=== PATIENT | male | born 1985 | race Two or more races ===

== ENCOUNTER 2024-04-24 04:16 | Emergency (ER) | payer BC, OTHER ==
[~2024-04-24] VITALS: Ht 188 cm; Wt 172.2 kg
[2024-04-24] MEDS ORDERED: INDO50CA82 PO (05:09)
[2024-04-24] MEDS ORDERED: METH4PAK PO (05:09)
--- NOTE | 2024-04-24 05:09 | ED.PDOC ---
Musculoskeletal HPI Comments 38 YEAR OLD MALE PRESENTS TO ER WITH COMPLAINTS OF RIGHT HAND PAIN X 4 DAYS. PATIENT WITH PMH SIGNIFICANT FOR GOUT STATES THAT HE SPENDS SEVERAL HOURS A DAY USING HIS HANDS TO BUILD CAR PARTS AND X 4 DAYS HAS BEEN EXPERIENCING 8/10 PAIN LOCALIZED TO LAST 3 FINGERS OF RIGHT HAND WITH RADIATION TOWARDS RIGHT WRIST. NOTES HE HAS BEEN TAKING IBUPROFEN FOR HIS PAIN WITH SLIGHT RELIEF. DENIES FEVER, BODY ACHES, CHILLS, NUMBNESS/TINGLING, TRAUMA/INJURY, SKIN CHANGES OR ANY FURTHER SYMPTOMS/COMPLAINTS Chief Complaint: Upper Extremity Time Seen by MD: 04:44 Primary Care Provider: UNKNOWN Reviewed Notes: Nurses Notes, Medications, Allergies Allergies: Coded Allergies: NO KNOWN ALLERGIES (Unverified , 04/24/24) Home Meds Active Scripts Methylprednisolone (Medrol Dosepak) 4 Mg Jesse, 4 MG PO UD, #21 TAB 0 Refills UAD Prov:LALO RENAE 04/24/24 Indomethacin (Indomethacin) 50 Mg Cap, 1 CAP PO TID PRN, #30 CAP 0 Refills Prov:LALO RENAE 04/24/24 Information Source: Patient Mode of Arrival: Ambulatory Past Medical History PAST MEDICAL HISTORY: Gout Surgical History: Denies all surgeries Family History Family History: Unknown Social History Smoker: Cigarettes, Less Than 1 Pack/Day Alcohol: Denies ETOH Use Drugs: Denies Drug Use Lives In: Home Constitutional: denies: chills, diaphoresis, fatigue, fever, malaise, sweats, weakness, others EENTM: denies: blurred vision, double vision, ear bleeding, ear discharge, ear drainage, ear pain, ear ringing, eye pain, eye redness, hearing loss, mouth pain, mouth swelling, nasal discharge, nose bleeding, nose congestion, nose pain, photophobia, tearing, throat pain, throat swelling, voice changes, others Respiratory: denies: cough, hemoptysis, orthopnea, SOB at rest, shortness of breath, SOB with excertion, stridor, wheezing, others Cardiovascular: denies: chest pain, dizzy spells, diaphoresis, Dyspnea on exertion, edema, irregular heart beat, left arm pain, lightheadedness, palpitations, PND, syncope, others Gastrointestinal: denies: abdomen distended, abdominal pain, blood streaked bowels, constipated, diarrhea, dysphagia, difficulty swallowing, hematemesis, melena, nausea, poor appetite, poor fluid intake, rectal bleeding, rectal pain, vomiting, others Genitourinary: denies: burning, dysuria, flank pain, frequency, hematuria, incontinence, penile discharge, penile sore, pain, testicle pain, testicle swelling, urgency, others Neurological: denies: dizziness, fainting, headache, left sided numbness, left sided weakness, numbness, paresthesia, pre-existing deficit, right sided numbness, right sided weakness, seizure, speech problems, tingling, tremors, weakness, others Musculoskeletal: reports: others ( STATED IN HPI) Integumetry: denies: bruises, change in color, change in hair/nails, dryness, laceration, lesions, lumps, rash, wounds, others Allergic/Immunocompromised: denies: Difficulty Healing, Frequent Infections, Hives, Itching, others Hematologic/Lymphatic: denies: anemia, blood clots, easy bleeding, easy bruising, swollen glands, others Endocrine: denies: excessive hunger, excessive sweating, excessive thirst, excessive urination, flushing, intolerance to cold, intolerance to heat, unexplained weight gain, unexplained weight loss, others Psychiatric: denies: anxiety, bipolar disorder, depression, hopeless, panic disorder, schizophrenia, sleepless, suicidal, others Physical Exam General Appearance: No Apparent Distress HEENT: PERRL/EOMI Neck: Full Range of Motion, Non-Tender, Normal Respiratory: Chest Non-Tender, Lungs Clear, No Accessory Muscle Use, No Respiratory Distress, Normal Breath Sounds Cardiovascular: No Murmur, No Gallop, Regular Rate/Rhythm Breast Exam: Deferred Gastrointestinal: NOT DONE Genitalia: Deferred Pelvic: Deferred Rectal: Deferred Extremities: Normal capillary refill, Normal range of motion Musculoskeletal : Extremity Location: Hand (SLIGHT TTP TO PALM OF RIGHT HAND NOTED WITHOUT ANY TTP TO RIGHT WRIST APPRECIATED. NO BONY TENDERNESS/SKIN CHANGES NOTED. PATIENT ABLE TO FULLY MOVE ALL FINGERS RIGHT HAND. 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 Was a procedure done?: No Sedation Sedation?: No Differential Diagnosis EXT Differential Diagnosis: Fracture, Dislocation, Neurovascular injury X-Ray, Labs, Meds, VS Vital Signs Date Time Temp Pulse Resp B/P (MAP) Pulse Ox O2 Delivery O2 Flow Rate FiO2 04/24/24 04:34 98.1 88 20 165/96 (119) 97 Patient refused right hand x-ray in ER Toradol 60 mg IM ordered Solu-Medrol 105 mg IM ordered Patient neurovascularly intact and reported improvement in symptoms prior to discharge Advised on rest/no strenuous activity and elevation Advised to follow up in one week for x-ray of right hand if symptoms do not improve Advised to follow up with PCP in 1-2 days Patient verbalized understanding and agreeable with current plan of care Advised to return to ER immediately if symptoms worsen Time of 1ST Reevaluation: 04:44 Reevaluation 1ST: N/A Patient Education/Counseling: Diagnosis, Treatment, Prognosis, Need For Follow Up Family Education/Counseling: No Family Present Departure 1 Departure Time of Disposition: 05:02 Impression: Primary Impression: Sprain of right hand Qualified Codes: S63.91XA - Sprain of unspecified part of right wrist and hand, initial encounter Disposition: 01 HOME / SELF CARE / HOMELESS Condition: Stable e-Prescriptions Methylprednisolone (Medrol Dosepak) 4 Mg Jesse 4 MG PO UD, #21 TAB 0 Refills UAD Prov: LALO RENAE 04/24/24 Indomethacin (Indomethacin) 50 Mg Cap 1 CAP PO TID PRN, #30 CAP 0 Refills Prov: LALO RENAE 04/24/24 Discharged With: Friend Critical Care Note Critical Care Time?: No Stability Stability form required: No Heart Score Heart Score: Heart Score Response (Comments) Value History N/A 0 EKG N/A 0 Age N/A 0 Risk Factors N/A 0 Troponin N/A 0 Total 0 LALO RENAE Apr 24, 2024 05:09
[2024-04-24] MEDS: methylPREDNISolone SOD SUCC 125 MG/2 ML VL IM ONE (05:14)
[2024-04-24] MEDS: KETOROLAC TROMETH 60MG/2ML VIAL IM ONE (05:15)
[2024-04-24 05:40] VITALS: TEMP 98.6
[2024-04-24 06:27] VITALS: BP 138/78; PULSE 83; RESP 18; O2SAT 98
== END 2024-04-24 06:28 | disposition home or self-care (01) ==
LOC: ER 04:16
DX: S63.591A Other specified sprain of right wrist, initial encounter (principal); F17.210 Nicotine dependence, cigarettes, uncomplicated; M10.9 Gout, unspecified; Z79.899 Other long term (current) drug therapy; X58.XXXA Exposure to other specified factors, initial encounter; Y93.89 Activity, other specified; Y92.89 Other specified places as the place of occurrence of the external cause; Y99.8 Other external cause status
CPT/HCPCS: 82947; 96372; 99284; J1885; J2919; 82962